=== PATIENT | male | born 1955 | race Caucasian/White ===

== ENCOUNTER 2019-01-04 09:14 | Day surgery (SDC) | payer MEDICARE ==
[~2019-01-04 09:14] MED LIST: ACETAMINOPHEN 1,000 MG/100 ML BTL IVPB ONE; CEFAZOLIN 2 Gram 2 GM/50 ML BAG IVPB ONE
[2019-01-04] MEDS ORDERED: DEXAMETHASONE 4 MG/ML 1ML VIAL IVP ONE (09:15)
[2019-01-04] MEDS ORDERED: FENTANYL PF 100MCG/2ML VIAL IV ONE (09:15)
[2019-01-04] MEDS ORDERED: ONDANSETRON HCL IV 4 MG/2 ML VIAL IVP ONE (09:15)
[2019-01-04] MEDS ORDERED: MIDAZOLAM HCL 2MG/2ML VIAL IV ONE (09:15)
[2019-01-04] MEDS ORDERED: PROPOFOL 10 MG/ML VIAL IV ONE (09:15)
[2019-01-04] MEDS ORDERED: DESFLURANE 240 ML BTL INH ONE (09:15)
[2019-01-04] MEDS ORDERED: LIDOCAINE 2% MDV (20MG/ML) 20ML VIAL IV ONE (09:15)
[2019-01-04 09:35] LABS: ABSOLUTE NEUTROPHIL COUNT 1.87; BASO % 0.5 % (0-6); EOS % 5.5 % (0-6); HEMATOCRIT 47.9 % (42.0-52.0); HEMOGLOBIN 15.6 gm/dl (14.0-18.0); MEAN CORPUSCULAR HEMOGLOBIN 31.6 pg (27-33); MEAN CORPUSCULAR HGB CONC 32.6 g/dl (32-36); PLATELET COUNT 209 K/uL (130-400); RED BLOOD COUNT 4.94 M/uL (4.40-5.70); RED CELL DISTRIBUTION WIDTH 12.3 % (11.5-14.5); WHITE BLOOD COUNT W/O DIFF 4.4 K/uL (4.2-12.2)
[2019-01-04] MEDS ORDERED: RINGERS SOLUTION,LACTATED 1,000 ML IV ONE ×2 (10:00→13:20)
[2019-01-04 10:01] LABS: BLOOD UREA NITROGEN 13 mg/dL (8-23); EST GLOMERULAR FILTRATION RATE > 60 mL/min; GLUCOSE,RANDOM 129 mg/dL (74-109)
[2019-01-04] MEDS ORDERED: BUPIVACAINE 0.5% W/EPI MPF 30 ML VIAL SQ ONE (13:03)
[2019-01-04] MEDS ORDERED: METHYLPREDNISOLONE 40MG/VIAL IU ONE (13:09)
[2019-01-04] MEDS ORDERED: MORPHINE SULFATE (PACU ONLY) 4 MG/ML VIAL IU ONE (13:09)
[2019-01-04] MEDS ORDERED: HYDROCODONE/APAP 7.5/325MG TABLET PO ONE (14:02)
--- NOTE | 2019-01-05 07:30 | Operative Note ---
DATE OF SURGERY: 01/04/2019 PREOPERATIVE DIAGNOSIS: Internal derangement of the left knee. POSTOPERATIVE DIAGNOSES: 1. Grade 3 chondromalacia patella. 2. Radial split tear involving the posterior horn of the medial meniscus. 3. Grade 3 chondromalacia of medial femoral condyle. 4. Fringe tear involving the lateral horn of the lateral meniscus. 5. Moderate synovitis of pouch. OPERATION: 1. Left knee arthroscopy with partial medial and lateral meniscectomy. 2. Left knee arthroscopy with limited synovectomy. 3. Left knee arthroscopy with chondroplasty of the medial and patellofemoral compartments. STAFF SURGEON: Manuel Henning MD ANESTHESIA: General. PREPARATION: Chloraprep. INDIVIDUAL CONSIDERATIONS: None. PROCEDURE: The patient was taken to the operating room and placed supine on the operating room table. The patient had a successful induction with general anesthetic. The left lower extremity was prepped and draped in the usual fashion. The patient had a superolateral inflow cannula placed. Skin was infiltrated with 0.5% Marcaine with epinephrine prior. The knee was drained of a clear effusion and then inflated with normal saline. An inferomedial and an inferolateral portal were made in a similar fashion. The arthroscope was introduced through the inferolateral portal up into the pouch. Patellofemoral compartment showed grade 3 changes of the pouch. This was smoothed with a shaver. Some synovitis of the pouch was debrided with a shaver. Medially, he had a radial flap tear involving the posterior horn of the medial meniscus. This was debrided back to a stable rim with basket forceps and a shaver. There were grade 3 changes on the femoral condyle, which were smoothed. In the notch, the cruciates were normal. Lateral compartment had a fringe tear of the lateral horn which was debrided back with basket forceps with a shaver on the meniscus. Articular cartilage was intact. The knee was then irrigated out with saline to remove loose floating debris. Portals were closed with suzan, and 20 mL of 0.25% plain Marcaine along with 4 mg of morphine and 40 mg of Depo-Medrol were injected into the knee. A sterile bulky compressive dressing was applied. The patient tolerated procedure well. Needle and sponge counts were correct. Estimated blood loss was minimal. He was taken back to recovery in good condition. There were no complications. [facility]
== END 2019-01-04 14:15 | disposition home or self-care (01) ==
LOC: SUR 09:14
PROVIDERS: ATTEND Orthopaedic Surgery
DX: S83.242A Other tear of medial meniscus, current injury, left knee, initial encounter (principal); S83.282A Other tear of lateral meniscus, current injury, left knee, initial encounter; M94.262 Chondromalacia, left knee; M65.862 Other synovitis and tenosynovitis, left lower leg; I10 Essential (primary) hypertension; K21.9 Gastro-esophageal reflux disease without esophagitis
CPT/HCPCS: 80048; 85025; 93005; J1030; J2270; J2405; J7120